=== PATIENT | male | born 1980 | race Caucasian/White ===

== ENCOUNTER 2020-11-09 10:56 | Emergency (ER) | payer OTHER ==
[~2020-11-09] VITALS: Ht 177.8 cm; Wt 79.5 kg
[2020-11-09 11:03] VITALS: BP 130/86
[2020-11-09] MEDS ORDERED: ANTIPSYCHOTIC PO (11:09)
[2020-11-09] MEDS ORDERED: UNK MEDS PO (11:09)
[2020-11-09] MEDS ORDERED: PEG 3350/NA SULF,BICARB,CL/KCL 4000 ML SOLUTION PO ONE (11:15)
== END 2020-11-09 13:39 | disposition home or self-care (01) ==
LOC: EMS 10:56
DX: T18.5XXA Foreign body in anus and rectum, initial encounter (principal); F32.9 Major depressive disorder, single episode, unspecified; F20.9 Schizophrenia, unspecified; F17.210 Nicotine dependence, cigarettes, uncomplicated; F19.90 Other psychoactive substance use, unspecified, uncomplicated; Z88.0 Allergy status to penicillin; Z91.011 Allergy to milk products; X58.XXXA Exposure to other specified factors, initial encounter; Y93.89 Activity, other specified; Y92.89 Other specified places as the place of occurrence of the external cause; Y99.8 Other external cause status
CPT/HCPCS: 99283